=== PATIENT | male | born 1995 | race Caucasian/White ===

== ENCOUNTER 2018-04-06 15:41 | Emergency (ER) | payer SELFPAY ==
[2018-04-06 16:03] VITALS: BP 151/82
--- NOTE | 2018-04-06 16:10 | ER Document Report ---
HPI - HPI Patient complains to provider of: Right foot pain Onset: Last week Onset/Duration: Gradual Pain Level: 3 Context: 22-year-old male complaining of dorsal right foot pain after he got new shoes and goes up and down the stairs. He thinks is due to the shoes. He just wants to be checked. No fall. Associated Symptoms: None Exacerbated by: Walking Relieved by: Denies Similar symptoms previously: No Recently seen / treated by doctor: No - ROS ROS below otherwise negative: Yes Systems Reviewed and Negative: Yes All other systems reviewed and negative - MUSCULOSKELETAL Musculoskeletal: REPORTS: Extremity pain - R foot Past Medical History - General Information source: Patient - Social History Smoking Status: Never Smoker Chew tobacco use (# tins/day): No Frequency of alcohol use: Occasional Drug Abuse: None Lives with: Family Family History: Reviewed & Not Pertinent Patient has suicidal ideation: No Patient has homicidal ideation: No - Medical History Medical History: Negative Renal/ Medical History: Denies: Hx Peritoneal Dialysis Surgical Hx: Negative - Immunizations Hx Diphtheria, Pertussis, Tetanus Vaccination: Yes Vertical Provider Document - CONSTITUTIONAL Agree With Documented VS: Yes Exam Limitations: No Limitations General Appearance: No Apparent Distress - INFECTION CONTROL TRAVEL OUTSIDE OF THE [place] IN LAST 30 DAYS: No - MUSCULOSKELETAL/EXTREMETIES Musculoskeletal/Extremeties: RODRIGUEZ, FROM Notes: 2+ DP, mild tender over right dorsal lateral foot soft tissue/tendon - NEURO Level of Consciousness: Alert Motor/Sensory: No Motor Deficit, No Sensory Deficit Course - Vital Signs Vital signs: Temp Pulse Resp BP Pulse Ox 98.8 F 74 16 151/82 H 98 04/06/18 16:01 04/06/18 16:01 04/06/18 16:01 04/06/18 16:01 04/06/18 16:01 Discharge - Discharge Clinical Impression: Right foot tendinitis Condition: Good Disposition: HOME, SELF-CARE Instructions: Ibuprofen (General) ([facility]), Tendonitis ([facility]) Additional Instructions: See the mortgage originator if persists Ice Motrin Return to the emergency room any concerns Prescriptions: Ibuprofen [Motrin 800 mg Tablet] 800 mg PO Q8HP PRN #30 tablet PRN Reason: Referrals: MARYSOL BIANCHI DPM [ACTIVE STAFF] - Follow up as needed
== END 2018-04-06 16:38 | disposition home or self-care (01) ==
LOC: ER 15:41
DX: M77.51 Other enthesopathy of right foot and ankle (principal)
CPT/HCPCS: 99283

== ENCOUNTER 2019-08-20 22:35 | Emergency (ER) | payer SELFPAY ==
--- NOTE | 2019-08-20 23:35 | RADIOLOGY REPORT (SQ) ---
EXAM DESCRIPTION: XR FOOT 3 OR MORE VIEWS COMPLETED DATE/TME: 08/20/2019 00:00 CLINICAL HISTORY: 23 years, Male, pain COMPARISON: None. NUMBER OF VIEWS: TECHNIQUE: LIMITATIONS: None. FINDINGS: 3 views of the left foot were obtained. No fracture or dislocation. There are small calcaneal spurs. Mineralization of bone appears normal. IMPRESSION: Small calcaneal spurs. copyright 2010 [employer]- All Rights Reserved
[2019-08-21] MEDS ORDERED: ENOXAPARIN SODIUM INJ 100 MG/1 ML DISP.SYRIN SUBCUT ONE (01:09)
--- NOTE | 2019-08-21 01:15 | ER Document Report ---
ED General - General Chief Complaint: Foot Pain Stated Complaint: LEFT FOOT SWELLING Time Seen by Provider: 08/21/19 00:41 Notes: 23-year-old male presents emergency department complaining of left lateral foot pain that is been going on since last evening. Patient states that the pain is really only there when he is walking on the foot and it is particularly around the midfoot and fourth and fifth MTP joint. Denies any injury or history of trauma, denies dropping on anything on it, states he is on his feet quite a bit, states that it does not improve with ice or elevation, it did worsen after hot shower. Denies any real pain at rest. States it did improve with Goody's powders. Patient does have a history of gout but states it does not feel the same. Also states that his biggest concern is that he may have a blood clot in his leg or foot. States that that is why his family members sent him in this evening. Denies history of DVT personally or in the family, same with PE, denies taking any hormones, smoking cigarettes, long travel or recent surgery. TRAVEL OUTSIDE OF THE [place] IN LAST 30 DAYS: No - Related Data Allergies/Adverse Reactions: No Known Allergies Allergy (Verified 04/06/18 15:44) Past Medical History - General Information source: Patient - Social History Smoking Status: Never Smoker Chew tobacco use (# tins/day): Yes - dips Frequency of alcohol use: Occasional Drug Abuse: None Family History: Reviewed & Not Pertinent Patient has suicidal ideation: No Patient has homicidal ideation: No Renal/ Medical History: Denies: Hx Peritoneal Dialysis - Immunizations Hx Diphtheria, Pertussis, Tetanus Vaccination: Yes Review of Systems - Review of Systems Constitutional: No symptoms reported Musculoskeletal: See HPI Skin: Change in color - Erythema to left foot. -: Yes All other systems reviewed and negative Physical Exam - Vital signs Vitals: Temp Pulse Resp BP Pulse Ox 98.2 F 110 H 18 146/92 H 99 08/20/19 22:39 08/20/19 22:39 08/20/19 22:39 08/20/19 22:39 08/20/19 22:39 Interpretation: Hypertensive, Tachycardic - General General appearance: Appears well, Alert In distress: None - HEENT Head: Normocephalic, Atraumatic Eyes: Normal Pupils: PERRL - Respiratory Respiratory status: No respiratory distress - Cardiovascular Pulses: Normal: Posterior tibial, Dorsalis pedis Normal capillary refill: Yes - Extremities Notes: Left foot is swollen laterally, tender palpation across the midfoot around the base of the metatarsals particularly metatarsals 4 and 5, erythema as described below, swelling is nonpitting, no lymphangitic streaking, no blistering, he does have full range of motion of the foot. - Skin Notes: Erythema and increased warmth to the left foot dorsally over the midfoot and extending to the base of the toes, does not extend to the toes, does not extend to the plantar aspect of the foot, no break in the skin is noted, no lymphangitic streaking. There is some swelling to the foot. Course - Re-evaluation Re-evalutation: 08/21/19 01:14 X-ray is negative for fracture dislocation. I am more suspicious of gout and DVT however patient states this feels different than his gout. I do think it is reasonable to give a shot of Lovenox and have him to have a Doppler ultrasound later today during normal business hours to rule out DVT. So long as this is negative patient will then start taking usual gout medications including col chicine and steroids. Patient is placed in Tae wrap for compression of the foot to help decrease swelling and discharged home. 08/21/19 01:15 I do not see any indication of cellulitis at this time. - Vital Signs Vital signs: Temp Pulse Resp BP Pulse Ox 98.2 F 110 H 18 146/92 H 99 08/20/19 22:39 08/20/19 22:39 08/20/19 22:39 08/20/19 22:39 08/20/19 22:39 Discharge - Discharge Clinical Impression: Swelling of left foot, Left foot erythema Condition: Stable Disposition: HOME, SELF-CARE Additional Instructions: Today your x-ray did not show any evidence of a fracture or dislocation. We are putting you in an Tae wrap to help compress the foot and see if that will decrease some of your swelling. Please follow the instructions on your paperwork to arrange a Doppler ultrasound of your leg tomorrow to rule out blood clot in your left leg. If there is a blood clot they will send you to the emergency department so we can further treat this blood clot. Today you received shot of Lovenox to initially treat any blood clot that may be there. If the ultrasound is negative I would like you to go ahead and start taking the colchicine 2 tablets initially and then 1 tablet every hour after that up to 3 total tablets in a day to decrease your pain. You should also take the steroids as directed until they are gone. Return for increasing swelling, increasing pain, redness streaking up your leg or any new or concerning symptoms. Prescriptions: Colchicine [Colchicine 0.6 mg Tablet] 0.6 mg PO ASDIR PRN #10 tablet PRN Reason: Prednisone [Deltasone 20 mg Tablet] 40 mg PO DAILY #10 tablet Forms: Follow-Up Outpatient Testing
[2019-08-21 01:31] VITALS: BP 128/78
== END 2019-08-21 01:34 | disposition home or self-care (01) ==
LOC: ER 22:35
DX: M79.89 Other specified soft tissue disorders (principal); L53.9 Erythematous condition, unspecified; M79.672 Pain in left foot; M10.9 Gout, unspecified
CPT/HCPCS: 99283; 96372; 73630; J1650

== ENCOUNTER → 2019-08-21 | Outpatient (CLI) | payer SELFPAY ==
--- NOTE | 2019-08-21 14:28 | RADIOLOGY REPORT (SQ) ---
EXAM DESCRIPTION: VENOUS UNILATERAL LOWER COMPLETED DATE/TIME: 08/21/2019 2:20 pm REASON FOR STUDY: LLE SWELLING COMPARISON: None. TECHNIQUE: Dynamic and static sullivan scale and color images acquired of the left leg venous system. Se lected spectral images acquired with additional compression and augmentation maneuvers. The contralat eral common femoral vein and saphenofemoral junction were also imaged. Images stored on PACS. LIMITATIONS: None. FINDINGS: LEFT COMMON FEMORAL: Normal phasicity, compression and augmentation. No visualized echogenic material on g ray scale. No defects on color images. FEMORAL: Normal compression and augmentation. No visualized echogenic material on sullivan scale. No defe cts on color images. POPLITEAL: Normal compression, augmentation. No visualized echogenic material on sullivan scale. No defec ts on color images. CALF VESSELS: Normal compression, augmentation. No visualized echogenic material on sullivan scale. No de fects on color images. GSV and SSV: Normal compression, augmentation. No visualized echogenic material on sullivan scale. No def ects on color images. ANY DEEP VENOUS INSUFFICIENCY: Not evaluated. ANY EVIDENCE OF POPLITEAL CYST: No. OTHER: No other significant finding. RIGHT COMMON FEMORAL VEIN AND SAPHENOFEMORAL JUNCTION: Normal phasicity, compression and augmentation. No visualized echogenic material on sullivan scale. No de fects on color images. IMPRESSION: NO EVIDENCE OF DVT OR SVT IN THE LEFT LEG. TECHNICAL DOCUMENTATION: JOB ID: [id number] [employer]- All Rights Reserved Reading location - IP/workstation name: [email or web address]
== END ==
LOC: SP 12:41
PROVIDERS: ATTEND Emergency Medicine
DX: M79.89 Other specified soft tissue disorders (principal)
CPT/HCPCS: 93971